=== PATIENT | male | born 1990 | race African-American/Black ===

== ENCOUNTER 2025-03-18 03:22 | Emergency (ER) | payer OTHER, SELFPAY ==
--- NOTE | ~2025-03-18 | CT_ITS ---
EXAMINATION: CT abdomen pelvis wo con DATE: 03/18/2025 8:47 [employer] INDICATION: Left flank pain. TECHNIQUE: Computed tomographic angiography (CTA) of the abdomen was performed without and with 100 mL Omnipaque-350 intravenous contrast. The dose-length product was 447.16 mGy-cm. Maximum intensity projection 3D-reconstructions of the aorta and other arteries were constructed by the technologist on a separate workstation. Automated exposure control and iterative reconstruction technique were employed. COMPARISON: None. FINDINGS: There are groundglass opacities in the lung bases. Heart size normal. No significant pleural or pericardial effusion. There is a 2 mm distal left ureteral stone just proximal to the UVJ with mild hydronephrosis and perinephric stranding. Fatty infiltration of the liver. The spleen, pancreas, adrenal glands and right kidney are unremarkable. Gallbladder is present. Nonobstructive bowel gas pattern. Normal appendix. IMPRESSION: 1. Distal left ureteral stone just proximal to the UVJ measuring 2 mm with mild hydronephrosis. 2: Patchy groundglass opacities of the lower lobes, differential diagnosis includes dependent atelectasis, infection and hypersensitivity pneumonitis. Reviewed, dictated and finalized at location O. BENDER IMPRESSION: 1. Distal left ureteral stone just proximal to the UVJ measuring 2 mm with mild hydronephrosis. 2: Patchy groundglass opacities of the lower lobes, differential diagnosis incl udes dependent atelectasis, infection and hypersensitivity pneumonitis.
[2025-03-18 03:26] VITALS: BP 141/93; PULSE 72; RESP 18; TEMP 36.6; O2SAT 100
--- NOTE | 2025-03-18 03:38 | ED_ITS ---
HPI - Back Pain/Injury General Chief Complaint: Back Pain/Injury Stated Complaint: LEFT FLANK PAIN Time Seen by Provider: 03/18/25 03:32 History of Present Illness HPI Narrative: 34-year-old otherwise healthy male presenting to the emergency depart with sudden-onset left flank pain radiating into his groin. Started about 1:00 a.m. and woke up from sleep. No history of kidney stones. No traumatic injury. He has been having intermittent squeezing pain from his Back and now traveling towards his left flank and wrapping around towards his groin. patient called EMS as he was having worsening pain. Nauseous but no vomiting. No fever, chills, chest pain, shortness a breath, urinary discomfort or hematuria. No midline back pain or contralateral right-sided symptoms. Thinks it could be a kidney stone but no history. Patient was given Toradol en route by EMS with improvement symptoms transiently. Related Data Allergies Allergy/AdvReac Type Severity Reaction Status Date / Time No Known Allergies Allergy Verified 03/18/25 03:39 Review of Systems 2 Review of Systems: As reviewed above in HPI All systems reviewed & are unremarkable except as noted in HPI and below Exam 2 Narrative: GENERAL: uncomfortable appearing but not any acute distress. Having difficulties finding position of comfort in the stretcher. HEAD: [Normocephalic, atraumatic.] EYES: [PERRLA and EOMI.] ENT: Nares clear, no rhinorrhea or epistaxis. Mucous membranes moist. NECK: Supple. CHEST: [Clear to auscultation. No respiratory distress.] HEART: [Regular rate and rhythm]. No murmur heard. [Normal peripheral pulses.] ABDOMEN: Soft, nontender, nonreproducible CVA tenderness, no rigidity or guarding. EXTREMITIES: Normal range of motion. [No edema.] SKIN: Warm, dry, no rash. NEURO: [No focal deficits]. Alert and oriented [x3.] PSYCH: [Normal mood and affect.] Course Vital Signs Vital signs: Vital Signs Temperature 36.6 C 03/18/25 03:26 Pulse Rate 72 03/18/25 03:26 Respiratory Rate 18 03/18/25 03:26 Blood Pressure 141/93 H 03/18/25 03:26 Pulse Oximetry 100 03/18/25 03:26 Oxygen Delivery Room Air 03/18/25 03:26 Temperature 36.6 C 12/29/25 03:26 Pulse Rate 72 03/18/25 03:26 Respiratory Rate 18 03/18/25 03:26 Blood Pressure 141/93 H 03/18/25 03:26 Pulse Oximetry 100 03/18/25 03:26 Oxygen Delivery Room Air 03/18/25 03:26 [facility] Narrative Medical decision making narrative: 34-year-old otherwise healthy male presenting to the emergency depart with sudden-onset left flank pain radiating into his groin. Started about 1:00 a.m. and woke up from sleep. No history of kidney stones. No traumatic injury. He has been having intermittent squeezing pain from his Back and now traveling towards his left flank and wrapping around towards his groin. patient called EMS as he was having worsening pain. Nauseous but no vomiting. No fever, chills, chest pain, shortness a breath, urinary discomfort or hematuria. No midline back pain or contralateral right-sided symptoms. Thinks it could be a kidney stone but no history. Patient was given Toradol en route by EMS with improvement symptoms transiently. Patient is having difficulties finding comfort and writhing around in the stretcher. Does appear in pain. Vital signs reassuring without any tachycardia, fever, hypoxemia. Mildly elevated blood pressure likely from pain. Suspect kidney stone, renal colic, back pain, low suspicion intra-abdominal at action or abscess. Low suspicion pyelonephritis your kidney infection. Urinalysis basic laboratory studies were ordered. CT scan obtained. He was given Dilaudid fluid and Zofran and re-evaluated. Patient felt significant improvement after medications and fluids. His CT scan reviewed and independently interpreted by myself and radiology. He has a small 2 mm renal calculus in the distal left ureter before the UVJ. No evidence of kidney damage or kidney disease. No fluid collections or regional inflammatory changes. No bowel obstruction appendicitis or diverticulitis. Urinalysis shows no signs of infection. Patient is comfortable at this time, will be discharged home with a combination medications for pain and symptom control until he passes the stone fully. Given Urology follow-up with this is recurrent issue. We discussed return precautions prior to safe discharge home. Differential Diagnosis Differential Diagnosis: Suspect kidney stone, renal colic, back pain, low suspicion intra-abdominal at action or abscess. Low suspicion pyelonephritis your kidney infection. Lab Data [facility] Lab Attestation statement: I personally reviewed the patient's lab results. 03/18/25 03:50 03/18/25 03:50 Labs: Lab Results 03/18/25 03/18/25 Range/Units 03:50 04:52 WBC 12.2 H (4.5-10.0) K/mm3 RBC 4.56 L (4.6-6.20) M/mm3 Hgb 14.5 (14.0-18.0) g/dL Hct 41.1 L (42.0-52.0) % MCV 90.1 (80-100) fl MCH 31.8 (26-34) pg MCHC 35.3 (32-36) g/dl RDW 12.1 (11.5-14.5) % Plt Count 262 (150-375) k/mm3 MPV 11.4 H (7.4-10.4) fl Immature Gran % (Auto) 0.7 H (0-0.5) % Neut % (Auto) 71.2 (45.5-73.1) % Lymph % (Auto) 20.3 (18.3-44.2) % [place] % (Auto) 6.5 (2.6-8.5) % Eos % (Auto) 0.7 (0-4.4) % Baso % (Auto) 0.6 (0.2-1.2) % Lymph # (Auto) 2.48 (0.9-3.2) K/mm3 [place] # (Auto) 0.8 H (0.1-0.6) K/mm3 Eos # (Auto) 0.1 (0-0.3) K/mm3 Baso # (Auto) 0.1 (0.0-0.1) K/mm3 Abs Immat Gran (auto) 0.08 H (0.00-0.031) K/mm3 Absolute Neuts (auto) 8.7 H (1.3-6.7) K/mm3 Absolute Nucleated RBC 0.000 (0.0-0.012) K/mm3 Nucleated RBC % 0.0 (0.0-0.2) % Sodium 139 (137-145) mmol/L Potassium 3.6 (3.4-5.0) mmol/L Chloride 106 (98-107) mmol/L Carbon Dioxide 28 (22-30) mmol/L Anion Gap 5 (4-12) mmol/L BUN 14 (9-20) mg/dL Creatinine 0.93 (0.7-1.3) mg/dL Estim Creat Clear Calc Not Reportable Estimated GFR > 60 (59 - ) Glucose 144 H (65-110) mg/dL Calcium 11.4 H (8.4-10.2) mg/dL Urine Color Yellow (Yellow) Urine Appearance Turbid H (Clear) Urine pH 8.0 (5.0-9.0) Ur Specific [place] 1.015 (1.001-1.035) Urine Protein Negative (Negative) mg/dL Urine Glucose (UA) Negative (Negative) mg/dL Urine Ketones Trace H (Negative) mg/dL Ur Blood (Man) 2+ H (Negative) Urine Nitrate Negative (Negative) Urine Bilirubin Negative (Negative) Urine Urobilinogen 0.2 (<2.0) mg/dL Leukocyte Esterase Rfl Negative (Negative) NELLY/UL Urine RBC >100 H (0-2) /hpf Urine WBC 0-5 (0-3) /hpf Ur Squamous Epith Cells None seen (Few) /hpf Urine Bacteria None seen /hpf Urine Casts 0-2 Imaging Data Attestation: I personally reviewed and interpreted this imaging study as follows: My impression: 2mm UVJ stone Discharge Plan Discharge Clinical Impression: Left ureteral stone Patient Disposition: Home Condition: Stable Instructions: Antibiotic Form, Kidney Stones (ED), Flank Pain (ED) Additional Instructions: You have a small 2 mm kidney stone in your distal left urinary tract. This is almost passed and symptoms will get much better after fully urinating out the small stone. No signs of infection. We will send you home with medications for pain and symptom control. Return with any emergent concerns at any time otherwise follow-up with regular doctor and we have provided her urologist referral in case is a recurrent issue. Patient Language: Danish Prescriptions: New ketorolac 10 mg tablet 10 mg PO Q8H PRN (Reason: pain) 5 Days Qty: 20 0RF Rx Instructions: maximum total duration of 5 days from all oral, intranasal, or parenteral formulations ondansetron 4 mg tablet,disintegrating 4 mg PO Q8H PRN (Reason: nausea and vomiting) Qty: 20 0RF oxycodone 5 mg tablet 5 mg PO Q8H PRN (Reason: pain) Qty: 10 0RF Follow-up/Referrals: Monroe Houston MD [Physician, Urology] UNKNOWN,DOCTOR [Primary Care Provider] Time of Disposition: 05:32
[2025-03-18] MEDS: LACTATED RINGERS 1,000 ML 999 ML IV CONT ×2 (03:41→05:06)
[2025-03-18] MEDS: ONDANSETRON INJ 4 MG/2 ML VIAL IV PUSH (03:44)
[2025-03-18] MEDS: HYDROmorphone HCL INJ (*CRX) 1 MG/ML SYR IV PUSH (03:44)
[2025-03-18 04:08] LABS: Anion Gap 5 mmol/L (4-12); Blood Urea Nitrogen 14 mg/dL (9-20); Calcium 11.4 mg/dL (8.4-10.2); Carbon Dioxide 28 mmol/L (22-30); Chloride 106 mmol/L (98-107); Estimated Glomerular Filt Rate > 60; Glucose 144 mg/dL (65-110); Potassium 3.6 mmol/L (3.4-5.0); Sodium 139 mmol/L (137-145)
[2025-03-18 04:09] LABS: Hematocrit 41.1 % (42.0-52.0); Hemoglobin 14.5 g/dL (14.0-18.0); Immature Granulocyte Percent A 0.7 % (0-0.5); Lymphocytes Absolute Auto 2.48 K/mm3 (0.9-3.2); Mean Corpuscular HGB Conc 35.3 g/dl (32-36); Mean Corpuscular Hemoglobin 31.8 pg (26-34); Mean Corpuscular Volume 90.1 fl (80-100); Nucleated Red Blood Cells Absolute Auto 0.000 K/mm3 (0.0-0.012); Nucleated Red Blood Cells Perc 0.0 % (0.0-0.2); Platelet Count Result 262 k/mm3 (150-375); Red Blood Count 4.56 M/mm3 (4.6-6.20); White Blood Count 12.2 K/mm3 (4.5-10.0)
--- OUTSIDE RECORDS SUMMARY | 2025-03-18 04:47 | XMS_ITS | Clinical Summary ---
Author Organization [facility] [employer] [place] Address [address] [address] Care Team Providers Care Multimedia Producer Name Role Phone Unavailable Primary Care Provider Unavailabl e Allergies No known active allergies Medications nabumetone (RELAFEN) 500 mg tablet Take 1 Tablet (500 mg) by mouth 2 times daily as needed for Pain. Take with food 30 Tablet 06/14/2019 Active Active Problems No known active problems Immunizations Immunization Administration Dates Next Due INFLUENZA VACCINE QUADRIVALENT 6 MOS UP IM 12/20 INFLUENZA VACCINE QUADRIVALENT 6 MOS UP PF IM Family History Medical History Relation Name Comments No Known Problems Daughter 1 No Known Problems Daughter 2 No Known Problems Father Unknown Maternal Grandfather Unknown Maternal Grandmother No Known Problems Mother Unknown Paternal Grandfather No Known Problems Paternal Grandmother No Known Problems Sister 1 No Known Problems Sister 2 No Known Problems Sister 3 Relation Name Status Comments Daughter 1 Alive Daughter 2 Alive Father Alive Maternal Grandfather Maternal Grandmother Mother Alive Paternal Grandfather Paternal Grandmother Alive Sister 1 Alive Sister 2 Alive Sister 3 Alive Social History Tobacco Use Types Packs/Day Years Used Date Smoking Tobacco: Never Smokeless Tobacco: Never Alcohol Use Standard Drinks/Week Comments Yes 0 (1 standard drink = 0.6 oz pur e alcohol) weekend alcohol use Sex and Gender Information Value Date Recorded Sex Assigned at Not on file Legal Sex Male 9:48 AM CDT Gender Identity Not on file Sexual Orientation Not on file Last Filed Vital Signs Vital Sign Reading Time Taken Comments Blood Pressure 120/74 07/02/2021 9:58 AM CDT Pulse 84 04/23/2020 8:16 AM [employer] Temperature 35.5 C (95.9 F) 04/23/2020 8:16 AM [employer] Respiratory Rate 18 04/23/2020 8:16 AM [employer] Oxygen Saturation 99% 04/23/2020 8:16 AM [employer] Inhaled Oxygen Concentration - - Weight 93.4 kg (206 lb) 07/02/2021 9:58 AM CDT Height 170.2 cm (5' 7) 07/02/2021 9:58 AM CDT Body Mass Index 32.26 07/02/2021 9:58 AM CDT Plan of Treatment Health Maintenance Due Date Last Done Comments DTAP/TDAP/TD VACCINES (1 - Tdap) 2009 HEPATITIS B VACCINES (1 of 3 - 19+ 3-dose series) 2009 INFLUENZA VACCINE (#1) 2024 12/29/2021, 2018 HPV VACCINES (No Doses Required) Completed Insurance * Guarantor: [employer]) Account Type Relation to Patient Date of Phone Billing Address Corporate Employer ATTN: HELEN LIN [address] [address] [facility]
--- OUTSIDE RECORDS SUMMARY | 2025-03-18 04:47 | XMS_ITS | Encounter Summary ---
Author Organization [facility] Address [address] [place] [id number] Care Team Providers Care Drug Abuse Program Coordinator Name Role Phone Venessa Clemons MD Primary Care Provider Unavailable Crystal Reina DO Primary Care Provider [phone] Encounter Details Date Type Department Care Team (Late st Contact Info) Description 01/22/2017 [place] [address] Vensesa Clemons MD Social History Tobacco Use Types Packs/Day Years Used Date Smoking Tobacco: Never Assessed Sex and Gender Information Value Date Recorded Sex Assigned at Male 01/31/2025 11:25 AM [employer] Legal Sex Male 4:09 PM CDT Gender Identity Male 01/31/2025 11:25 AM [employer] Sexual Orientation Straight 01/31/2025 11 :25 AM [employer] documented as of this encounter Plan of Treatment Upcoming Encounters Date Type Department Care Team (Late Contact Info) Description 05/23/2025 9:00 AM [employer] Office Visit [facility] Family & Internal Medicine [address] [id number] Crystal Reina DO [address] [facility] [place] [address] documented as of this encounter Visit Diagnoses Not on filedocumented in this encounter Care Teams Drug Abuse Program Coordinator Relationship Specialty Start Date End Date Venessa Clemons MD PCP - General 03/10/14 Crystal Reina DO [address] [place] [address] PCP - General FAMILY PRACTICE 01/21/25 documented as of this encounter
[2025-03-18 05:06] LABS: Add Urine Microscopic? YES; Appearance Urine Turbid (Clear); Glucose Urine UA Negative (Negative); Leukocyte Esterase Ur Negative LEU/UL (Negative); Nitrate Urine Negative (Negative); Non Pathogenic Casts 0-2; Specific Grav Ur 1.015 (1.001-1.035)
== END 2025-03-18 05:51 | disposition home or self-care (01) ==
PROVIDERS: Emergency Provider Student in an Organized Health Care Education/Training Program
DX: N13.2 Hydronephrosis with renal and ureteral calculous obstruction (principal)
CPT/HCPCS: 36415; 74176; 80048; 81001; 85025; 96361; 96374; 96375; 99284; J1171; J2405; J7120